=== PATIENT | male | born 1975 | race Caucasian/White ===

== ENCOUNTER 2024-03-20 09:11 | Emergency (ER) | payer OTHER ==
[~2024-03-20] VITALS: Ht 188 cm; Wt 95.3 kg
[2024-03-20 09:25] VITALS: BP_SYST 130; PULSE 80; RESP 16; TEMP 97.6; O2SAT 97
[2024-03-20] MEDS ORDERED: TRAM50TA2 PO (10:02)
[2024-03-20] MEDS: IBUPROFEN 600 MG TABLET PO ONE (10:14)
== END 2024-03-20 10:32 | disposition home or self-care (01) ==
LOC: SED 09:11
DX: S52.501A Unspecified fracture of the lower end of right radius, initial encounter for closed fracture (principal); Z79.899 Other long term (current) drug therapy; V87.8XXA Person injured in other specified noncollision transport accidents involving motor vehicle (traffic), initial encounter; Y93.89 Activity, other specified; Y92.89 Other specified places as the place of occurrence of the external cause; Y99.8 Other external cause status
CPT/HCPCS: 99283